=== PATIENT | female | born 1965 | race Caucasian/White ===

== ENCOUNTER 2016-09-17 17:35 | Inpatient (IN) | payer OTHER ==
[~2016-09-17] VITALS: Ht 167.6 cm; Wt 88.5 kg
[~2016-09-17 17:35] MED LIST: ACET325T PO; FLUO20CA4 PO; GABA300C5 PO; NEUR400C PO; PROZ40CA PO; RISP1 PO; RISP2TAB37 PO; TRAZ50TA12 PO
--- NOTE | 2016-09-17 18:38 | PD ---
HPI . Suicidal ideation Chief Complaint: Psych Time Seen by Provider: 18:37 Travel History International Travel<30 days: No Contact w/Intl Traveler<30days: No History of Present Illness HPI Patient presents in police custody under the Gonzales Act for suicidal ideation. The patient and her were allegedly having an argument. She stated that she was going to kill herself. She stated that she would do so by running into traffic. She reports a history of similar complaints and has been admitted to psychiatry before. PFSH Past Medical History Anxiety: Yes Depression: Yes Cancer: No Cardiovascular Problems: Yes (her heart flatters at times she states ) Diabetes: No Headaches: No Psychiatric: Yes Seizures: No Social History Alcohol Use: No Tobacco Use: No Substance Use: No Allergies-Medications (Allergen,Severity, Reaction): Coded Allergies: No Known Allergies (Unverified , 07/10/16) Reported Meds & Prescriptions Reported Meds & Active Scripts Active Fluoxetine (Fluoxetine HCl) 20 Mg Cap 20 Mg PO DAILY Neurontin (Gabapentin) 400 Mg Cap 400 Mg PO TID Trazodone (Trazodone HCl) 50 Mg Tab 100 Mg PO HS PRN Risperdal (Risperidone) 1 Mg Tab 2 Mg PO BID Acetaminophen 325 Mg Tab 650 Mg PO Q4H PRN 30 Days Reported Prozac (Fluoxetine HCl) 40 Mg Cap 40 Cap PO DAILY Gabapentin 300 Mg Cap 300 Mg PO TID Risperdal (Risperidone) 2 Mg Tab 2 Mg PO HS Review of Systems Except as stated in HPI: all other systems reviewed are Neg General / Constitutional: No: Fever, Chills HENT: No: Headaches Cardiovascular: No: Chest Pain or Discomfort Respiratory: No: Shortness of Breath Gastrointestinal: No: Vomiting, Diarrhea Genitourinary: No: Urgency, Frequency, Dysuria Psychiatric: Positive: Depression, Suicidal Ideations, Mood Disorder Physical Exam Narrative GENERAL: She is sitting in the chair in no distress. SKIN: Warm and dry. HEAD: Atraumatic. Normocephalic. EYES: Pupils equal and round. ENT: No nasal bleeding or discharge. Mucous membranes pink and moist. NECK: Trachea midline. CARDIOVASCULAR: Regular rate and rhythm. Heart sounds are normal. RESPIRATORY: No accessory muscle use. Lungs are clear with good air movement throughout. GASTROINTESTINAL: Abdomen soft, non-tender, nondistended. MUSCULOSKELETAL: No obvious deformities. No edema. NEUROLOGICAL: Awake and alert. No obvious cranial nerve deficits. Motor grossly within normal limits. Normal speech. PSYCHIATRIC: Flat affect. Good eye contact. She does not appear distracted by internal stimuli. Data Data Last Documented VS Vital Signs Date Time Temp Pulse Resp B/P Pulse Ox O2 Delivery O2 Flow Rate FiO2 09/17/16 20:39 97.8 88 18 131/73 97 Orders Complete Blood Count With Diff (09/17/16 18:37) Comprehensive Metabolic Panel (09/17/16 18:37) Drug Screen, Random Urine (09/17/16 18:37) Ed Urine Pregnancytest Poc (09/17/16 18:37) Alcohol (Ethanol) (09/17/16 18:37) Psych Screen (09/17/16 18:37) MDM Medical Decision Making Medical Screen Exam Complete: Yes Emergency Medical Condition: Yes Differential Diagnosis Differential diagnosis includes but is not limited to depression with suicidal gesture, suicide attempt, suicidal ideation, attention seeking behavior. Narrative Course Patient presents under the Gonzales Act for suicidal ideation. She does have a plan. Diagnosis Primary Impression: Suicidal ideation Condition: Stable Enriqueta Arevalo MD Sep 17, 2016 18:38
[2016-09-17 20:39] VITALS: BP 131/73; PULSE 88; RESP 18; TEMP 97.8; O2SAT 97
[2016-09-17 21:05] LABS: AUTOMATED NEUTROPHIL # 5.1 TH/MM3 (1.8-7.7); BASOPHIL # 0.1 TH/MM3 (0-0.2); BASOPHIL % 0.7 % (0.0-2.0); EOSINOPHIL # 0.2 TH/MM3 (0-0.4); EOSINOPHIL % 2.4 % (0.0-4.0); HEMATOCRIT 39.1 % (35.0-46.0); HEMO FLAGS DIFF FINAL; LYMPH % 22.6 % (9.0-44.0); LYMPHOCYTE # 1.8 TH/MM3 (1.0-4.8); MEAN CORPUSCULAR HEMOGLOBIN 30.4 PG (27.0-34.0); MEAN CORPUSCULAR HGB CONC 33.8 % (32.0-36.0); MONO % 10.3 % (0.0-8.0); PLATELET COUNT 251 TH/MM3 (150-450); RED BLOOD COUNT 4.35 MIL/MM3 (4.00-5.30); RED CELL DISTRIBUTION WIDTH 13.9 % (11.6-17.2)
[2016-09-17 21:22] LABS: ANION GAP 8 MEQ/L (5-15); AST (GOT) 9 U/L (15-37); BICARBONATE 27.4 MEQ/L (21.0-32.0); BLOOD UREA NITROGEN 15 MG/DL (7-18); CHLORIDE 106 MEQ/L (98-107); GLOMERULAR FILTRATION RATE 81 ML/MIN (>89); POTASSIUM 3.8 MEQ/L (3.5-5.1); SODIUM (NA) 141 MEQ/L (136-145)
[2016-09-17 21:25] LABS: ALKALINE PHOSPHATASE 112 U/L (45-117); ALT (GPT) 20 U/L (10-53); TOTAL BILIRUBIN ADULT 0.2 MG/DL (0.2-1.0)
[2016-09-17 21:47] LABS: AMPHETAMINE, URINE NEG (NEG); BARBITURATES, URINE NEG (NEG); COCAINE, URINE NEG (NEG)
[2016-09-18 03:02] VITALS: BP 132/63; PULSE 60; RESP 16; O2SAT 100
[2016-09-18 06:09] VITALS: BP 131/71; PULSE 61; RESP 18; O2SAT 97
[2016-09-18 11:33] VITALS: BP 136/64; PULSE 63; RESP 18; TEMP 98.7; O2SAT 98
[2016-09-18 14:54] VITALS: BP 128/63; PULSE 79; RESP 18; O2SAT 88
[2016-09-18] MEDS ORDERED: hydrOXYzine HCL 50 MG TAB PO PRN (17:00)
[2016-09-18] MEDS ORDERED: ACETAMINOPHEN 325 MG TAB PO PRN (17:00)
[2016-09-18] MEDS ORDERED: diphenhydrAMINE HCL 50 MG CAP PO PRN (17:00)
[2016-09-18] MEDS ORDERED: diphenhydrAMINE HCL 50 MG/ML VIAL IM PRN (17:00)
[2016-09-18] MEDS ORDERED: MAGNESIUM HYDROXIDE SUSP 30 ML CUP PO PRN (17:00)
[2016-09-18] MEDS ORDERED: ALUMINUM/MAGNESIUM/SIMETH 30 ML CUP PO PRN (17:00)
[2016-09-19 06:23] VITALS: BP 84/49; PULSE 59; RESP 16; TEMP 97.8; O2SAT 99
[2016-09-19 08:33] LABS: ANION GAP 5 MEQ/L (5-15); BICARBONATE 32.6 MEQ/L (21.0-32.0); BLOOD UREA NITROGEN 14 MG/DL (7-18); CHLORIDE 103 MEQ/L (98-107); GLOMERULAR FILTRATION RATE 83 ML/MIN (>89); POTASSIUM 3.7 MEQ/L (3.5-5.1); SODIUM (NA) 141 MEQ/L (136-145)
[2016-09-19 08:35] LABS: HDL CHOLESTEROL 50.7 MG/DL (40.0-60.0); LDL CHOLESTEROL 95 MG/DL (0-99)
[2016-09-19 09:50] VITALS: BP 126/67; PULSE 65
[2016-09-19] MEDS ORDERED: ACETAMINOPHEN 325 MG TAB PO PRN (10:30)
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
[2016-09-19] MEDS: risperiDONE 1 MG TAB PO SCH ×2 (11:34→20:51)
[2016-09-19] MEDS: GABAPENTIN 400 MG CAP PO SCH ×2 (12:00→17:24)
[2016-09-19 14:23] LABS: HEMOGLOBIN A1b 1.7 %; HEMOGLOBIN Ao 85.4 %; HEMOGLOBIN P3 3.9 %
[2016-09-19 19:53] VITALS: BP 122/96; PULSE 79; RESP 16; TEMP 97.8; O2SAT 98
[2016-09-19] MEDS: traZODone HCL 50 MG TAB PO PRN (23:53)
[2016-09-20 06:13] VITALS: BP 95/58; PULSE 64; RESP 16; TEMP 97.4
[2016-09-20] MEDS: GABAPENTIN 400 MG CAP PO SCH ×3 (09:07→17:38)
[2016-09-20] MEDS: risperiDONE 1 MG TAB PO SCH ×2 (09:07→21:30)
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
[2016-09-20 19:44] VITALS: BP 97/50; PULSE 94; RESP 18; TEMP 97.5; O2SAT 98
[2016-09-20] MEDS: traZODone HCL 50 MG TAB PO PRN (21:30)
[2016-09-21 06:39] VITALS: BP 112/69; PULSE 74; RESP 18; TEMP 97.2; O2SAT 98
[2016-09-21] MEDS: GABAPENTIN 400 MG CAP PO SCH ×3 (09:19→17:48)
[2016-09-21] MEDS: risperiDONE 1 MG TAB PO SCH ×2 (09:19→21:32)
--- NOTE | 2016-09-21 11:44 | HHI.PYPN ---
Subjective Remarks Patient was seen and discussed with the staff attorney. Patient tends to isolate herself and remains in her room. Not wanting to talk much she wanted to be left alone. She feels safe in the hospital and denied any suicidal ideation intentions or plan. Patient occasionally admitted to hearing voices but learning to ignore it. No behavior or management problem reported. No side effects were complained. Continue with the same treatment. technology services manager to assist in aftercare and discharge planning Review of Systems Except as stated in HPI: all other systems reviewed are Neg Psychiatric: COMPLAINS OF: Mood changes, Depression, Hallucinations (occasional ) Objective Alert: Yes [place]: Person, Place Mood: Anxious, Depressed Affect: Restricted Memory Intact: Recent (mildly impaired) Hallucinations: Auditory (patient admitted to occasionally hearing voices but learning to ignore it) Delusions: No Delusion Type: Other (no delusional material obvious at this time) Suicidal: Ideation (patient denies any suicidal ideation intentions or plan and feels safe in the hospital) Homicidal: Ideation (denies) Insight/Judgement Limited Vitals/IOs Vital Signs Date Time Temp Pulse Resp B/P Pulse Ox O2 Delivery O2 Flow Rate FiO2 09/21/16 06:39 97.2 74 18 112/69 98 09/18/16 14:54 Room Air Assessment & Plan Problem List: (1) Major depressive disorder, recurrent episode, severe, with psychosis ICD Code: F33.3 Assessment & Plan Estimated LOS: days Justification for Cont. Inpt. Risk For safety and monitoring of the medication. Request HC Surrog/Guard Advoc?: No Salo Ortiz MD Sep 21, 2016 11:44
[2016-09-21] MEDS: CITALOPRAM HYDROBROMIDE 20 MG TAB PO SCH (12:36)
[2016-09-21 19:50] VITALS: BP 98/65; PULSE 99; RESP 18; TEMP 97.6; O2SAT 98
[2016-09-22 06:22] VITALS: BP 107/70; PULSE 78; RESP 16; TEMP 97.5; O2SAT 97
[2016-09-22] MEDS: CITALOPRAM HYDROBROMIDE 20 MG TAB PO SCH (08:54)
[2016-09-22] MEDS: GABAPENTIN 400 MG CAP PO SCH ×2 (08:54→12:47)
[2016-09-22] MEDS: risperiDONE 1 MG TAB PO SCH (08:55)
--- NOTE | 2016-09-22 12:13 | HHI.PYPN ---
Subjective Remarks Patient was seen and discussed with the rn staffing. Patient was isolative and keeping to herself but no behavior or management problem reported. Patient denied any suicidal ideation intentions or plan. Denies any auditory or visual hallucinations. She claimed that she has been feeling better and wants to go home with her tomorrow and willing to take the medication and follow-up as an outpatient. Continue with the same treatment. [place] onc[facility] social worker to assist. Review of Systems Except as stated in HPI: all other systems reviewed are Neg Psychiatric: COMPLAINS OF: Mood changes, Depression Objective Alert: Yes [place]: Person, Place, Situation Mood: Depressed Affect: Restricted Memory Intact: Recent (mildly impaired) Hallucinations: Auditory (patient denied any active auditory or visual hallucination at this time) Delusions: No Delusion Type: Other (no delusional material obvious at this time) Suicidal: Ideation (patient denies any suicidal ideation intentions or plan and feels safe in the hospital) Homicidal: Ideation (denies) Insight/Judgement Fair Vitals/IOs Vital Signs Date Time Temp Pulse Resp B/P Pulse Ox O2 Delivery O2 Flow Rate FiO2 09/22/16 06:22 97.5 78 16 107/70 97 09/18/16 14:54 Room Air Assessment & Plan Problem List: (1) Major depressive disorder, recurrent episode, severe, with psychosis ICD Code: F33.3 Assessment & Plan Estimated LOS: days Justification for Cont. Inpt. Monitoring of the medication to help lift her depression Request HC Surrog/Guard Advoc?: No Salo Ortiz MD Sep 22, 2016 12:13
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
[2016-09-22] MEDS ORDERED: CELE20TA PO (14:15)
== END 2016-09-22 17:05 | disposition home or self-care (01) | DRG 885 ==
LOC: NEDAMB 17:35 → NEDA 09-18 16:45 → H260 09-18 18:00
PROVIDERS: ADMIT Psychiatry & Neurology Psychiatry; ATTEND Psychiatry & Neurology Psychiatry
DX: F33.3 Major depressive disorder, recurrent, severe with psychotic symptoms (principal); R45.851 Suicidal ideations; Z91.14 Patient's other noncompliance with medication regimen; Z81.8 Family history of other mental and behavioral disorders; Z91.410 Personal history of adult physical and sexual abuse; Z91.19 Patient's noncompliance with other medical treatment and regimen
CPT/HCPCS: 80048; 80053; 80061; 80307; 80320; 83036; 84703; 85025; 99284

== ENCOUNTER 2016-10-01 18:26 | Emergency (ER) | payer SELFPAY ==
[~2016-10-01 18:26] MED LIST changes: +CELE20TA PO
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
[2016-10-01 19:35] VITALS: BP 137/78; PULSE 75; RESP 18; TEMP 98.1; O2SAT 98
[2016-10-01 20:06] LABS: AUTOMATED NEUTROPHIL # 5.6 TH/MM3 (1.8-7.7); BASOPHIL % 0.3 % (0.0-2.0); EOSINOPHIL # 0.1 TH/MM3 (0-0.4); EOSINOPHIL % 1.8 % (0.0-4.0); HEMATOCRIT 38.4 % (35.0-46.0); HEMO FLAGS DIFF FINAL; LYMPH % 20.8 % (9.0-44.0); LYMPHOCYTE # 1.7 TH/MM3 (1.0-4.8); MEAN CELL VOLUME 90.2 FL (80.0-100.0); MEAN CORPUSCULAR HEMOGLOBIN 30.3 PG (27.0-34.0); MEAN CORPUSCULAR HGB CONC 33.6 % (32.0-36.0); MONO % 9.8 % (0.0-8.0); NEUT % 67.3 % (16.0-70.0); PLATELET COUNT 277 TH/MM3 (150-450); RED BLOOD COUNT 4.25 MIL/MM3 (4.00-5.30); RED CELL DISTRIBUTION WIDTH 13.6 % (11.6-17.2); WHITE BLOOD COUNT 8.3 TH/MM3 (4.0-11.0)
[2016-10-01 20:09] LABS: AMPHETAMINE, URINE NEG (NEG); BARBITURATES, URINE NEG (NEG); COCAINE, URINE NEG (NEG)
[2016-10-01 20:20] LABS: ANION GAP 7 MEQ/L (5-15)
[2016-10-01 20:23] LABS: ALKALINE PHOSPHATASE 91 U/L (45-117); ALT (GPT) 20 U/L (10-53); AST (GOT) 13 U/L (15-37); BICARBONATE 28.2 MEQ/L (21.0-32.0); BLOOD UREA NITROGEN 12 MG/DL (7-18); CHLORIDE 107 MEQ/L (98-107); GLOMERULAR FILTRATION RATE 80 ML/MIN (>89); POTASSIUM 3.5 MEQ/L (3.5-5.1); SODIUM (NA) 142 MEQ/L (136-145); TOTAL BILIRUBIN ADULT 0.3 MG/DL (0.2-1.0)
[2016-10-01 21:12] VITALS: BP 117/58; PULSE 78; RESP 18; O2SAT 97
[2016-10-01] MEDS ORDERED: ACETAMINOPHEN 325 MG TAB PO ONE (21:30)
[2016-10-02 02:12] VITALS: BP 119/67; PULSE 63; RESP 18; TEMP 97.6; O2SAT 97
== END 2016-10-02 05:00 ==
LOC: NEPJ 18:26
DX: F33.1 Major depressive disorder, recurrent, moderate (principal); M79.605 Pain in left leg; M79.604 Pain in right leg; G89.29 Other chronic pain; Z86.59 Personal history of other mental and behavioral disorders
CPT/HCPCS: 80053; 80307; 80320; 85025; 99285

== ENCOUNTER 2016-10-13 20:16 | Emergency (ER) | payer OTHER ==
[~2016-10-13] VITALS: Ht 152.4 cm; Wt 91.0 kg
[~2016-10-13 20:16] MED LIST changes: -FLUO20CA4 PO; -GABA300C5 PO
[2016-10-13 20:49] VITALS: BP 153/80; PULSE 82; RESP 19; TEMP 98.2; O2SAT 97
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
--- NOTE | 2016-10-13 21:59 | RADRPT ---
EXAM DATE/TIME: 10/13/2016 21:26 [facility] COMPARISON: No previous studies available for comparison. INDICATIONS : Right hip pain with no known injury. MEDICAL HISTORY : None. SURGICAL HISTORY : None. ENCOUNTER: Initial ACUITY: >1 year PAIN SCORE: 10/10 LOCATION: Right hip. FINDINGS: A two view examination of the right hip was performed. The primary and secondary trabecular pattern of the femoral neck is intact. The hip joint is of normal width without significant sclerosis or bon y hypertrophy. The acetabulum is grossly intact. CONCLUSION: Unremarkable examination of the right hip. Dimitri Kumar MD on October 13, 2016 at 21:57 Board Certified Radiologist. This report was verified electronically.
[2016-10-13 22:56] LABS: AUTOMATED NEUTROPHIL # 5.3 TH/MM3 (1.8-7.7); BASOPHIL % 0.5 % (0.0-2.0); EOSINOPHIL # 0.1 TH/MM3 (0-0.4); EOSINOPHIL % 1.6 % (0.0-4.0); HEMATOCRIT 35.8 % (35.0-46.0); HEMO FLAGS DIFF FINAL; LYMPH % 19.8 % (9.0-44.0); LYMPHOCYTE # 1.5 TH/MM3 (1.0-4.8); MEAN CELL VOLUME 90.8 FL (80.0-100.0); MEAN CORPUSCULAR HEMOGLOBIN 31.5 PG (27.0-34.0); MEAN CORPUSCULAR HGB CONC 34.7 % (32.0-36.0); MONO % 9.1 % (0.0-8.0); PLATELET COUNT 210 TH/MM3 (150-450); RED BLOOD COUNT 3.94 MIL/MM3 (4.00-5.30); RED CELL DISTRIBUTION WIDTH 13.9 % (11.6-17.2); WHITE BLOOD COUNT 7.6 TH/MM3 (4.0-11.0)
[2016-10-13 23:11] LABS: ALKALINE PHOSPHATASE 91 U/L (45-117); ALT (GPT) 19 U/L (10-53); ANION GAP 8 MEQ/L (5-15); AST (GOT) 13 U/L (15-37); BICARBONATE 27.4 MEQ/L (21.0-32.0); BLOOD UREA NITROGEN 14 MG/DL (7-18); CHLORIDE 108 MEQ/L (98-107); GLOMERULAR FILTRATION RATE 94 ML/MIN (>89); POTASSIUM 3.6 MEQ/L (3.5-5.1); SODIUM (NA) 143 MEQ/L (136-145); TOTAL BILIRUBIN ADULT 0.3 MG/DL (0.2-1.0)
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
[2016-10-14 06:00] VITALS: BP 101/56; PULSE 78; RESP 18; O2SAT 95
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
[2016-10-14 13:18] VITALS: BP 138/78; PULSE 80; RESP 18; O2SAT 98
== END 2016-10-14 15:00 ==
LOC: NEPA 20:16 → NEPJ 10-14 15:00
DX: F33.1 Major depressive disorder, recurrent, moderate (principal); M25.551 Pain in right hip; S01.511A Laceration without foreign body of lip, initial encounter; Y04.0XXA Assault by unarmed brawl or fight, initial encounter
CPT/HCPCS: 73502; 80053; 80320; 85025; 99284

== ENCOUNTER 2016-10-20 23:56 | Emergency (ER) | payer SELFPAY ==
[~2016-10-20 23:56] MED LIST changes: -ACET325T PO
[2016-10-20 23:59] VITALS: BP 135/104; PULSE 102; RESP 20; TEMP 97.6; O2SAT 97
[2016-10-21 00:31] LABS: AUTOMATED NEUTROPHIL # 4.3 TH/MM3 (1.8-7.7); BASOPHIL # 0.1 TH/MM3 (0-0.2); BASOPHIL % 1.1 % (0.0-2.0); EOSINOPHIL # 0.2 TH/MM3 (0-0.4); EOSINOPHIL % 3.1 % (0.0-4.0); HEMO FLAGS DIFF FINAL; LYMPH % 28.4 % (9.0-44.0); LYMPHOCYTE # 2.2 TH/MM3 (1.0-4.8); MEAN CELL VOLUME 89.2 FL (80.0-100.0); MEAN CORPUSCULAR HEMOGLOBIN 30.9 PG (27.0-34.0); MEAN CORPUSCULAR HGB CONC 34.7 % (32.0-36.0); MONO % 11.2 % (0.0-8.0); NEUT % 56.2 % (16.0-70.0); PLATELET COUNT 236 TH/MM3 (150-450); RED BLOOD COUNT 4.37 MIL/MM3 (4.00-5.30); RED CELL DISTRIBUTION WIDTH 13.7 % (11.6-17.2); WHITE BLOOD COUNT 7.6 TH/MM3 (4.0-11.0)
--- NOTE | 2016-10-21 00:32 | RADRPT ---
EXAM DATE/TIME: 10/20/2016 22:23 [facility] COMPARISON: CHEST SINGLE AP, October 08, 2015, 19:56. INDICATIONS : Chest pain. MEDICAL HISTORY : None. SURGICAL HISTORY : None. ENCOUNTER: Initial ACUITY: 1 day PAIN SCORE: 10/10 LOCATION: Bilateral chest FINDINGS: A single view of the chest demonstrates the lungs to be symmetrically aerated without evidence of mas s, infiltrate or effusion. The cardiomediastinal contours are unremarkable. Osseous structures are intact. CONCLUSION: No acute disease. Arjun Wisdom MD on October 21, 2016 at 0:31 Board Certified Radiologist. This report was verified electronically.
[2016-10-21 00:53] LABS: ANION GAP 8 MEQ/L (5-15); BICARBONATE 28.6 MEQ/L (21.0-32.0); BLOOD UREA NITROGEN 26 MG/DL (7-18); CHLORIDE 104 MEQ/L (98-107); CREATINE KINASE 52 U/L (26-192); GLOMERULAR FILTRATION RATE 74 ML/MIN (>89); POTASSIUM 4.1 MEQ/L (3.5-5.1); SODIUM (NA) 141 MEQ/L (136-145)
[2016-10-21] MEDS ORDERED: SODIUM CHLOR 0.9% 1000 ML INJ 1,000 ML IV ONE (01:00)
[2016-10-21 01:06] VITALS: BP 144/85; PULSE 80; RESP 16; TEMP 98.5; O2SAT 98
[2016-10-21] MEDS ORDERED: IBUP400T20 PO (02:28)
--- NOTE | 2016-10-21 02:30 | PD ---
HPI Chief Complaint: Chest Pain Time Seen by Provider: 00:57 Travel History International Travel<30 days: No Contact w/Intl Traveler<30days: No Traveled to known affect area: No History of Present Illness HPI 51-year-old female complains of left-sided chest pain duration 30 minutes or so. Onset occurred while walking. There is no pleuritic component. She has been sneezing quite a bit lately. She denies a family history of early onset coronary artery disease. She denies history of diabetes hyperlipidemia and hypertension. She does not smoke. She does not drink. Severity moderate. PFSH Past Medical History Bipolar Disorder: Yes Anxiety: Yes Depression: Yes Cancer: No Cardiovascular Problems: Yes (her heart flutters at times she states ) Diabetes: No Diminished Hearing: No Headaches: No Psychiatric: Yes (schizophrenia) Immunizations Current: Yes Schizophrenia: Yes Seizures: No Tetanus Vaccination: < 5 Years Influenza Vaccination: No ?: Unknown LMP: UNK Past Surgical History Section: Yes ( x 2) Other Surgery: Yes ( x2.) Social History Alcohol Use: No Tobacco Use: No Substance Use: No Allergies-Medications (Allergen,Severity, Reaction): Coded Allergies: No Known Allergies (Unverified , 10/21/16) Reported Meds & Prescriptions Reported Meds & Active Scripts Active Celexa (Citalopram Hydrobromide) 20 Mg Tab 20 Mg PO DAILY 10 Days Reported Prozac (Fluoxetine HCl) 40 Mg Cap 40 Cap PO DAILY Review of Systems Except as stated in HPI: all other systems reviewed are Neg Physical Exam Narrative GENERAL: 51-year-old female resting comfortably on bed multiple bags of personal belongings SKIN: Warm and dry. HEAD: Atraumatic. Normocephalic. EYES: Pupils equal and round. No scleral icterus. No injection or drainage. ENT: No nasal bleeding or discharge. Mucous membranes pink and moist. NECK: Trachea midline. No JVD. CARDIOVASCULAR: Regular rate and rhythm. No murmur appreciated. RESPIRATORY: No accessory muscle use. Clear to auscultation. Breath sounds equal bilaterally. GASTROINTESTINAL: Abdomen soft, non-tender, nondistended. Hepatic and splenic margins not palpable. MUSCULOSKELETAL: No obvious deformities. No clubbing. No cyanosis. No edema. NEUROLOGICAL: Awake and alert. No obvious cranial nerve deficits. Motor grossly within normal limits. Normal speech. PSYCHIATRIC: Appropriate mood and affect; insight and judgment normal. Data Data Last Documented VS Vital Signs Date Time Temp Pulse Resp B/P Pulse Ox O2 Delivery O2 Flow Rate FiO2 10/21/16 01:07 78 16 98 Room Air 10/21/16 01:06 98.5 144/85 Orders Electrocardiogram (10/20/16 23:59) Complete Blood Count With Diff (10/20/16 23:59) Basic Metabolic Panel (Bmp) (10/20/16 23:59) Ckmb (Isoenzyme) Profile (10/20/16 23:59) Troponin I (10/20/16 23:59) Chest, Single Ap (10/20/16 23:59) Iv Access Insert/Monitor (10/20/16 23:59) Sodium Chlor 0.9% 1000 Ml Inj (Ns 1000 M (10/21/16 01:00) Labs Laboratory Tests Test 10/21/16 00:15 White Blood Count 7.6 TH/MM3 Red Blood Count 4.37 MIL/MM3 Hemoglobin 13.5 GM/DL Hematocrit 39.0 % Mean Corpuscular Volume 89.2 FL Mean Corpuscular Hemoglobin 30.9 PG Mean Corpuscular Hemoglobin 34.7 % Concent Red Cell Distribution Width 13.7 % Platelet Count 236 TH/MM3 Mean Platelet Volume 7.4 FL Neutrophils (%) (Auto) 56.2 % Lymphocytes (%) (Auto) 28.4 % Monocytes (%) (Auto) 11.2 % Eosinophils (%) (Auto) 3.1 % Basophils (%) (Auto) 1.1 % Neutrophils # (Auto) 4.3 TH/MM3 Lymphocytes # (Auto) 2.2 TH/MM3 Monocytes # (Auto) 0.9 TH/MM3 Eosinophils # (Auto) 0.2 TH/MM3 Basophils # (Auto) 0.1 TH/MM3 CBC Comment DIFF FINAL Differential Comment Sodium Level 141 MEQ/L Potassium Level 4.1 MEQ/L Chloride Level 104 MEQ/L Carbon Dioxide Level 28.6 MEQ/L Anion Gap 8 MEQ/L Blood Urea Nitrogen 26 MG/DL Creatinine 0.81 MG/DL Estimat Glomerular Filtration 74 ML/MIN Rate Random Glucose 94 MG/DL Calcium Level 8.7 MG/DL Total Creatine Kinase 52 U/L Troponin I LESS THAN 0.02 NG/ML MDM Medical Decision Making Medical Screen Exam Complete: Yes Emergency Medical Condition: Yes Medical Record Reviewed: Yes Differential Diagnosis NSTEMI, unstable angina, coronary vasospasm, PE, PTX, aortic dissection, pericarditis, myocarditis, endocarditis, PNA, esophageal disease, aneurysm, musculoskeletal etiologies, anxiety, cocaine/sympathomimetic abuse Narrative Course EKG reveals sinus rhythm with a rate of 91 normal axis intervals no evidence of ischemic injury pattern CBC & BMP Diagram 10/21/16 00:15 Troponin less than 0.02 Diagnosis Primary Impression: Chest pain Qualified Code: R07.9 - Chest pain, unspecified type Referrals: Primary Care Physician 2 days Additional Instructions: You have a choice when it comes to health care, and we are glad that you chose [email or web address]. Hopefully, we have met your expectations on today's visit. You are welcome to return to [email or web address] at any time, as we are committed to meeting the health care needs of our community. Med/Other Pt SpecificInfo: No Change to Meds Scripts Ibuprofen 400 Mg [id number] Mg PO Q8H PRN (PAIN SCALE 6 TO 10) #10 TAB Ref 0 Prov:Gm Moreno MD 10/21/16 Disposition: 01 DISCHARGE HOME Condition: Stable Gm Moreno MD Oct 21, 2016 02:30
[2016-10-21 02:45] VITALS: BP 138/62; TEMP 98.5
[2016-10-21] MEDS ORDERED: IBUPROFEN 400 MG TAB PO ONE (02:45)
--- NOTE | 2016-10-21 19:07 | EKG ---
Date Performed: 10/21/2016 Time Performed: 00:07:58 PTAGE: 51 years EKG: Sinus rhythm NORMAL ECG PREVIOUS TRACING : 10/08/2015 18.42 Compared to prior tracing no significant change DOCTOR: Ravinder Moreno Interpretating Date/Time 10/21/2016 19:06:14
== END 2016-10-21 02:56 | disposition home or self-care (01) ==
LOC: NEPC 23:56
DX: R07.9 Chest pain, unspecified (principal)
CPT/HCPCS: 71010; 80048; 82550; 84484; 85025; 93005; 96360; 99285; J7030

== ENCOUNTER 2016-11-10 17:18 | Emergency (ER) | payer OTHER ==
[~2016-11-10] VITALS: Ht 152.4 cm; Wt 92.0 kg
[~2016-11-10 17:18] MED LIST changes: +IBUP400T20 PO; -NEUR400C PO; -RISP1 PO; -RISP2TAB37 PO; -TRAZ50TA12 PO
--- NOTE | 2016-11-10 18:12 | PD ---
HPI Chief Complaint: Gonzales Act/Suicidal Time Seen by Provider: 17:48 Travel History International Travel<30 days: No Contact w/Intl Traveler<30days: No Traveled to known affect area: No History of Present Illness HPI 51-year-old female presents to emergency department on Gonzales act by law enforcement. Patient apparently walked into a store locally here and told an employee that she felt like she was going to kill herself by walking on the traffic. Patient states she is supposed be taking medicines for depression but has not been taking them. Patient denies any alcohol or drug use denies any smoking history. Patient only physical complaint is chronic right hip pain which she states is no different today than it has been for the past few years. Denies any trauma. Denies any cough congestion nausea vomiting or fever. PFSH Past Medical History Bipolar Disorder: Yes Anxiety: Yes Depression: Yes Cancer: No Cardiovascular Problems: Yes (her heart flutters at times she states ) Diabetes: No Diminished Hearing: No Headaches: No Psychiatric: Yes (schizophrenia) Immunizations Current: Yes Schizophrenia: Yes Seizures: No Past Surgical History Section: Yes ( x 2) Other Surgery: Yes ( x2.) Social History Alcohol Use: No Tobacco Use: No Substance Use: No Allergies-Medications (Allergen,Severity, Reaction): Coded Allergies: No Known Allergies (Unverified , 10/21/16) Reported Meds & Prescriptions Reported Meds & Active Scripts Active Ibuprofen 400 Mg Tab 400 Mg PO Q8H PRN Celexa (Citalopram Hydrobromide) 20 Mg Tab 20 Mg PO DAILY 10 Days Reported Prozac (Fluoxetine HCl) 40 Mg Cap 40 Cap PO DAILY Review of Systems Except as stated in HPI: all other systems reviewed are Neg Physical Exam Narrative GENERAL: Well-developed well-nourished in no apparent distress. Disheveled. SKIN: Warm and dry. HEAD: Atraumatic. Normocephalic. EYES: Pupils equal and round. No scleral icterus. No injection or drainage. ENT: No nasal bleeding or discharge. Mucous membranes pink and moist. NECK: Trachea midline. No JVD. CARDIOVASCULAR: Regular rate and rhythm. No murmur appreciated. RESPIRATORY: No accessory muscle use. Clear to auscultation. Breath sounds equal bilaterally. GASTROINTESTINAL: Abdomen soft, non-tender, nondistended. Hepatic and splenic margins not palpable. MUSCULOSKELETAL: No obvious deformities. No clubbing. No cyanosis. No edema. NEUROLOGICAL: Awake and alert. No obvious cranial nerve deficits. Motor grossly within normal limits. Normal speech. PSYCHIATRIC: Endorses suicidal ideation with planning, states she walked out of the traffic today trying to get hit and was unable to do so. Denies homicidal ideation or audiovisual hallucinations. Data Data Last Documented VS Vital Signs Date Time Temp Pulse Resp B/P Pulse Ox O2 Delivery O2 Flow Rate FiO2 11/11/16 02:00 69 20 108/55 97 Room Air 11/10/16 18:36 98.7 Orders Complete Blood Count With Diff (11/10/16 17:49) Comprehensive Metabolic Panel (11/10/16 17:49) Urinalysis - C+S If Indicated (11/10/16 17:49) Psych Screen (11/10/16 17:49) Drug Screen, Random Urine (11/10/16 17:49) Alcohol (Ethanol) (11/10/16 17:49) Urine Culture (11/10/16 18:20) Cephalexin (Keflex) (11/10/16 19:45) Diet Regular Basic (11/10/16 Dinner) Diet Regular Basic (11/11/16 Breakfast) Labs Laboratory Tests Test 11/10/16 11/10/16 18:20 18:25 Urine Color YELLOW Urine Turbidity CLOUDY Urine pH 5.5 Urine Specific [place] 1.033 Urine Protein 30 mg/dL Urine Glucose (UA) NEG mg/dL Urine Ketones NEG mg/dL Urine Occult Blood NEG Urine Nitrite NEG Urine Bilirubin NEG Urine Urobilinogen LESS THAN 2.0 MG/DL Urine Leukocyte Esterase LARGE Urine RBC 1 /hpf Urine WBC 39 /hpf Urine Squamous Epithelial 38 /hpf Cells Urine Calcium Oxalate Crystals MOD /hpf Urine Bacteria MOD /hpf Urine Mucus MANY /lpf Microscopic Urinalysis Comment CULTURE INDICATED Urine Opiates Screen NEG Urine Barbiturates Screen NEG Urine Amphetamines Screen NEG Urine Benzodiazepines Screen NEG Urine Cocaine Screen NEG Urine Cannabinoids Screen NEG White Blood Count 6.8 TH/MM3 Red Blood Count 4.38 MIL/MM3 Hemoglobin 13.2 GM/DL Hematocrit 39.6 % Mean Corpuscular Volume 90.4 FL Mean Corpuscular Hemoglobin 30.2 PG Mean Corpuscular Hemoglobin 33.4 % Concent Red Cell Distribution Width 14.2 % Platelet Count 224 TH/MM3 Mean Platelet Volume 7.5 FL Neutrophils (%) (Auto) 58.9 % Lymphocytes (%) (Auto) 28.2 % Monocytes (%) (Auto) 9.4 % Eosinophils (%) (Auto) 2.7 % Basophils (%) (Auto) 0.8 % Neutrophils # (Auto) 4.0 TH/MM3 Lymphocytes # (Auto) 1.9 TH/MM3 Monocytes # (Auto) 0.6 TH/MM3 Eosinophils # (Auto) 0.2 TH/MM3 Basophils # (Auto) 0.1 TH/MM3 CBC Comment DIFF FINAL Differential Comment Sodium Level 142 MEQ/L Potassium Level 3.6 MEQ/L Chloride Level 106 MEQ/L Carbon Dioxide Level 29.3 MEQ/L Anion Gap 7 MEQ/L Blood Urea Nitrogen 17 MG/DL Creatinine 0.99 MG/DL Estimat Glomerular Filtration 59 ML/MIN Rate Random Glucose 105 MG/DL Calcium Level 8.8 MG/DL Total Bilirubin 0.3 MG/DL Aspartate Amino Transf 15 U/L (AST/SGOT) Alanine Aminotransferase 24 U/L (ALT/SGPT) Alkaline Phosphatase 102 U/L Total Protein 7.6 GM/DL Albumin 3.6 GM/DL Ethyl Alcohol Level LESS THAN 3 MG/DL MDM Medical Decision Making Medical Screen Exam Complete: Yes Emergency Medical Condition: Yes Differential Diagnosis Suicidal ideation, chronic hip pain, depression, major depressive disorder. Narrative Course Patient seen and examined the emergency department, she does have evidence of urinary tract infection otherwise her labs are reassuring. Calcium Megan crystals likely incidental finding. She has no anion gap and no acidosis. She is medically cleared for psychiatric evaluation and disposition. Recommend Keflex 500 mg by mouth every 6 hours for 3 days. This is ordered. Diagnosis Primary Impression: UTI (urinary tract infection) Qualified Code: N30.00 - Acute cystitis without hematuria Additional Impressions: Suicidal behavior Depressive disorder Condition: Stable Panfilo Landers MD Nov 10, 2016 18:12
[2016-11-10 18:36] VITALS: BP 138/71; PULSE 92; RESP 18; TEMP 98.7; O2SAT 97
[2016-11-10 18:40] LABS: BASOPHIL # 0.1 TH/MM3 (0-0.2); BASOPHIL % 0.8 % (0.0-2.0); EOSINOPHIL # 0.2 TH/MM3 (0-0.4); EOSINOPHIL % 2.7 % (0.0-4.0); HEMATOCRIT 39.6 % (35.0-46.0); HEMO FLAGS DIFF FINAL; LYMPH % 28.2 % (9.0-44.0); LYMPHOCYTE # 1.9 TH/MM3 (1.0-4.8); MEAN CELL VOLUME 90.4 FL (80.0-100.0); MEAN CORPUSCULAR HEMOGLOBIN 30.2 PG (27.0-34.0); MEAN CORPUSCULAR HGB CONC 33.4 % (32.0-36.0); MONO % 9.4 % (0.0-8.0); NEUT % 58.9 % (16.0-70.0); PLATELET COUNT 224 TH/MM3 (150-450); RED BLOOD COUNT 4.38 MIL/MM3 (4.00-5.30); RED CELL DISTRIBUTION WIDTH 14.2 % (11.6-17.2); WHITE BLOOD COUNT 6.8 TH/MM3 (4.0-11.0)
[2016-11-10 19:00] LABS: BACTERIA, URINE MOD /hpf; BLOOD, URINE NEG (NEG); CALCIUM OXALATE CRYSTALS,URINE MOD /hpf; COMMENT (UR) CULTURE INDICATED; CULTURE IF INDICATED CULTURE INDICATED; GLUCOSE,URINE NEG (NEG); KETONE, URINE NEG (NEG); MUCUS URINE MANY /lpf (OCC); NITRITE,URINE NEG (NEG); PH, URINE 5.5 (5.0-8.5); SQUAMOUS EPITHELIAL CELL URINE 38 /hpf (0-5); URINE COLOR YELLOW (YELLW/STRAW)
[2016-11-10 19:03] LABS: ANION GAP 7 MEQ/L (5-15); AST (GOT) 15 U/L (15-37); BICARBONATE 29.3 MEQ/L (21.0-32.0); BLOOD UREA NITROGEN 17 MG/DL (7-18); CHLORIDE 106 MEQ/L (98-107); GLOMERULAR FILTRATION RATE 59 ML/MIN (>89); POTASSIUM 3.6 MEQ/L (3.5-5.1); SODIUM (NA) 142 MEQ/L (136-145)
[2016-11-10 19:07] LABS: ALKALINE PHOSPHATASE 102 U/L (45-117); ALT (GPT) 24 U/L (10-53); TOTAL BILIRUBIN ADULT 0.3 MG/DL (0.2-1.0)
[2016-11-10 19:16] LABS: AMPHETAMINE, URINE NEG (NEG); BARBITURATES, URINE NEG (NEG); COCAINE, URINE NEG (NEG)
[2016-11-10 19:55] VITALS: BP 123/58; PULSE 82; RESP 20
[2016-11-10] MEDS: CEPHALEXIN MONOHYDRATE 500 MG CAP PO SCH (20:06)
[2016-11-10 21:49] VITALS: BP 133/79; PULSE 95; RESP 19; O2SAT 98
[2016-11-11] MEDS: CEPHALEXIN MONOHYDRATE 500 MG CAP PO SCH ×4 (00:30→17:53)
[2016-11-11 02:00] VITALS: BP 108/55; PULSE 69; RESP 20; O2SAT 97
[2016-11-11 06:21] VITALS: BP 121/71; PULSE 61; RESP 17; O2SAT 98
[2016-11-11 11:05] VITALS: BP 129/78; PULSE 88; RESP 18
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
[2016-11-11 14:00] VITALS: BP 112/56; PULSE 70; RESP 18
[2016-11-11 17:25] VITALS: BP 111/85; PULSE 75; RESP 18
[2016-11-11] MEDS ORDERED: CEPH-460 PO (17:40)
== END 2016-11-11 19:07 | disposition short-term general hospital (02) ==
LOC: NEPA 17:18 → NEPJ 11-11 19:07
DX: F32.9 Major depressive disorder, single episode, unspecified (principal); R45.851 Suicidal ideations; N39.0 Urinary tract infection, site not specified; M25.551 Pain in right hip; G89.29 Other chronic pain
CPT/HCPCS: 80053; 80307; 80320; 81001; 85025; 87086; 99285

== ENCOUNTER 2016-11-23 23:47 | Observation (INO) | payer SELFPAY ==
[~2016-11-23 23:47] MED LIST changes: +CEPH-460 PO
[2016-11-23 23:50] VITALS: BP 123/84; PULSE 98; RESP 16; TEMP 97.4; O2SAT 98
[2016-11-24 00:15] VITALS: BP 116/85; PULSE 82; RESP 16; O2SAT 100
--- NOTE | 2016-11-24 00:29 | PD ---
HPI Chief Complaint: Chest Pain Time Seen by Provider: 23:57 Travel History International Travel<30 days: No Contact w/Intl Traveler<30days: No History of Present Illness HPI The patient is 51 years old and arrives with chest pain which started 30 minutes prior to arrival while she was walking. Location is left chest. There is no radiation. She reports "I've been stressed out all day." She also states , "I've been walking all day." She denies a personal history diabetes hypertension or hyperlipidemia. She does not smoke. She reports her father had a myocardial infarction. She reports nausea and vomiting upon arrival to the ER, having vomited in the ER bathroom. She does not mention bloody emesis. There is no mention of shortness of breath or cough or fever. PFSH Past Medical History Bipolar Disorder: Yes Anxiety: Yes Depression: Yes Cancer: No Cardiovascular Problems: Yes (her heart flutters at times she states ) Diabetes: No Diminished Hearing: No Headaches: No Psychiatric: Yes (schizophrenia) Immunizations Current: Yes Schizophrenia: Yes Seizures: No Tetanus Vaccination: Unknown Influenza Vaccination: No ?: Not Past Surgical History Section: Yes ( x 2) Other Surgery: Yes ( x2.) Social History Alcohol Use: No Tobacco Use: No Substance Use: No Allergies-Medications (Allergen,Severity, Reaction): Coded Allergies: No Known Allergies (Unverified , 10/21/16) Reported Meds & Prescriptions Reported Meds & Active Scripts Active Azithromycin 250 Mg Tab 250 Mg PO DIRECTED Take 2 tabs (500 mg) on day 1 then 1 tab daily x 4 days. Keflex (Cephalexin) 500 Mg Cap 500 Mg PO Q8H 7 Days Ibuprofen 400 Mg Tab 400 Mg PO Q8H PRN Celexa (Citalopram Hydrobromide) 20 Mg Tab 20 Mg PO DAILY 10 Days Reported Prozac (Fluoxetine HCl) 40 Mg Cap 40 Cap PO DAILY Review of Systems Except as stated in HPI: all other systems reviewed are Neg General / Constitutional: No: Fever, Chills Cardiovascular: Positive: Chest Pain or Discomfort Respiratory: No: Shortness of Breath Physical Exam Narrative GENERAL: 51-year-old female well-nourished well-developed no acute distress SKIN: Warm and dry. Erythematous rash about the extremities not cellulitis in appearance. HEAD: Atraumatic. Normocephalic. EYES: Pupils equal and round. No scleral icterus. No injection or drainage. ENT: No nasal bleeding or discharge. Mucous membranes pink and moist. NECK: Trachea midline. No JVD. CARDIOVASCULAR: Regular rate and rhythm. No murmur appreciated. RESPIRATORY: No accessory muscle use. Clear to auscultation. Breath sounds equal bilaterally. GASTROINTESTINAL: Abdomen soft, non-tender, nondistended. Hepatic and splenic margins not palpable. MUSCULOSKELETAL: No obvious deformities. No clubbing. No cyanosis. No edema. NEUROLOGICAL: Awake and alert. No obvious cranial nerve deficits. Motor grossly within normal limits. Normal speech. PSYCHIATRIC: Appropriate mood and affect; insight and judgment normal. Data Data Last Documented VS Vital Signs Date Time Temp Pulse Resp B/P Pulse Ox O2 Delivery O2 Flow Rate FiO2 11/24/16 00:15 100 21 11/24/16 00:15 82 16 116/85 Room Air 11/23/16 23:50 97.4 Vital signs reviewed Orders Electrocardiogram (11/24/16:24) Basic Metabolic Panel (Bmp) (11/24/16:24) Ckmb (Isoenzyme) Profile (11/24/16 00:24) Complete Blood Count With Diff (11/24/16:24) Magnesium (Mg) (11/24/16:24) Troponin I (11/24/16:24) Chest, Single Ap (11/24/16 00:24) Ecg Monitoring (11/24/16 00:24) Bilateral Bp Monitoring (11/24/16:24) Iv Access Insert/Monitor (11/24/16:24) Oximetry (11/24/16:24) Oxygen Administration (11/24/16 00:24) Aspirin (Aspirin) (11/24/16 00:30) Sodium Chloride 0.9% Flush (Ns Flush) (11/24/16 00:30) Nitroglycerin Sl (Nitrostat Sl) (11/24/16 00:30) Urinalysis - C+S If Indicated (11/24/16 00:30) Admit Order (Ed Use Only) (11/24/16 03:00) Place In Observation (11/24/16 03:00) Activity Bed Rest With Brp (11/24/16 03:00) Vital Signs (Adult) Q4H (3/14/17 03:00) Cardiac Rhythm .As Directed (11/24/16 03:00) ^ Notify Dr: Other .PRN (11/24/16 03:00) ^ Notify DrHetal Parameters (11/24/16 03:00) Resp Oxygen Nasal Cannula (11/24/16 ) Diet Npo (11/24/16 Breakfast) Ckmb (Isoenzyme) Profile (11/24/16 03:00) Ckmb (Isoenzyme) Profile (11/24/16 06:00) Troponin I (11/24/16 03:00) Troponin I (11/24/16 06:00) Electrocardiogram (11/24/16 03:00) Electrocardiogram (11/24/16 06:00) ^ Obtain (11/24/16 03:00) Sodium Chloride 0.9% Flush (Ns Flush) (11/24/16 03:00) Sodium Chloride 0.9% Flush (Ns Flush) (11/24/16 09:00) Acetaminophen (Tylenol) (11/24/16 03:00) Acetamin-Hydrocod 325-7.5 Mg ([place] 7.5 (11/24/16 03:00) Morphine Inj (Morphine Inj) (11/24/16 03:00) Aspirin (Aspirin) (11/24/16 09:00) Temazepam (Restoril) (11/24/16 03:00) Alprazolam (Xanax) (11/24/16 03:00) Finish Painter / Telemetry DINORA.Q8H (11/24/16 03:00) Labs Laboratory Tests Test 11/24/16 00:40 White Blood Count 7.6 TH/MM3 Red Blood Count 4.25 MIL/MM3 Hemoglobin 13.0 GM/DL Hematocrit 37.9 % Mean Corpuscular Volume 89.2 FL Mean Corpuscular Hemoglobin 30.7 PG Mean Corpuscular Hemoglobin 34.4 % Concent Red Cell Distribution Width 14.5 % Platelet Count 236 TH/MM3 Mean Platelet Volume 8.2 FL Neutrophils (%) (Auto) 64.0 % Lymphocytes (%) (Auto) 24.6 % Monocytes (%) (Auto) 9.4 % Eosinophils (%) (Auto) 1.4 % Basophils (%) (Auto) 0.6 % Neutrophils # (Auto) 4.9 TH/MM3 Lymphocytes # (Auto) 1.9 TH/MM3 Monocytes # (Auto) 0.7 TH/MM3 Eosinophils # (Auto) 0.1 TH/MM3 Basophils # (Auto) 0.0 TH/MM3 CBC Comment DIFF FINAL Differential Comment Sodium Level 145 MEQ/L Potassium Level 3.7 MEQ/L Chloride Level 106 MEQ/L Carbon Dioxide Level 28.0 MEQ/L Anion Gap 11 MEQ/L Blood Urea Nitrogen 12 MG/DL Creatinine 0.72 MG/DL Estimat Glomerular Filtration 85 ML/MIN Rate Random Glucose 94 MG/DL Calcium Level 8.8 MG/DL Magnesium Level 2.0 MG/DL Total Creatine Kinase 90 U/L Troponin I LESS THAN 0.02 NG/ML MDM Medical Decision Making Medical Screen Exam Complete: Yes Emergency Medical Condition: Yes Medical Record Reviewed: Yes Differential Diagnosis NSTEMI, unstable angina, coronary vasospasm, PE, PTX, aortic dissection, pericarditis, myocarditis, endocarditis, PNA, esophageal disease, aneurysm, musculoskeletal etiologies, anxiety, cocaine/sympathomimetic abuse Narrative Course CBC & BMP Diagram 11/24/16 00:40 Troponin undetectable EKG: Sinus, rate 69, normal axis/intervals, no ischemia CXR: ? L base PNA Patient would benefit from chest pain center protocol evaluation. We'll prescribe azithromycin. Diagnosis Primary Impression: Chest pain Qualified Code: R07.9 - Chest pain, unspecified type Additional Impression: PNA (pneumonia) Qualified Code: J18.1 - Pneumonia of left lower lobe due to infectious organism Admitting Information Admitting Physician Requests: Observation Referrals: Primary Care Physician 2 days Additional Instructions: You have a choice when it comes to health care, and we are glad that you chose [facility]. Hopefully, we have met your expectations on today's visit. You are welcome to return to [facility] at any time, as we are committed to meeting the health care needs of our community. Med/Other Pt SpecificInfo: Prescription(s) given Scripts Azithromycin 250 Mg [id number] Mg PO DIRECTED #6 TAB Ref 0 Take 2 tabs (500 mg) on day 1 then 1 tab daily x 4 days. Prov:Gm Moreno MD 11/24/16 Gm Moreno MD Nov 24, 2016 00:29
[2016-11-24] MEDS ORDERED: SODIUM CHLORIDE 0.9% FLUSH 5 ML FLUSH IVF PRN ×2 (00:30→03:00)
[2016-11-24] MEDS: NITROGLYCERIN 0.4 MG SL 25 TABS/BTL SL SCH ×3 (00:30→00:40)
[2016-11-24] MEDS ORDERED: ASPIRIN 325 MG TAB PO ONE (00:30)
[2016-11-24 00:53] LABS: AUTOMATED NEUTROPHIL # 4.9 TH/MM3 (1.8-7.7); BASOPHIL % 0.6 % (0.0-2.0); EOSINOPHIL # 0.1 TH/MM3 (0-0.4); EOSINOPHIL % 1.4 % (0.0-4.0); HEMATOCRIT 37.9 % (35.0-46.0); HEMO FLAGS DIFF FINAL; LYMPH % 24.6 % (9.0-44.0); LYMPHOCYTE # 1.9 TH/MM3 (1.0-4.8); MEAN CELL VOLUME 89.2 FL (80.0-100.0); MEAN CORPUSCULAR HEMOGLOBIN 30.7 PG (27.0-34.0); MEAN CORPUSCULAR HGB CONC 34.4 % (32.0-36.0); MONO % 9.4 % (0.0-8.0); PLATELET COUNT 236 TH/MM3 (150-450); RED BLOOD COUNT 4.25 MIL/MM3 (4.00-5.30); RED CELL DISTRIBUTION WIDTH 14.5 % (11.6-17.2); WHITE BLOOD COUNT 7.6 TH/MM3 (4.0-11.0)
[2016-11-24 01:18] LABS: ANION GAP 11 MEQ/L (5-15); BLOOD UREA NITROGEN 12 MG/DL (7-18); CHLORIDE 106 MEQ/L (98-107); GLOMERULAR FILTRATION RATE 85 ML/MIN (>89); POTASSIUM 3.7 MEQ/L (3.5-5.1); SODIUM (NA) 145 MEQ/L (136-145)
[2016-11-24 01:35] LABS: CREATINE KINASE 90 U/L (26-192)
--- NOTE | 2016-11-24 01:44 | RADRPT ---
EXAM DATE/TIME: 11/24/2016 00:35 [facility] COMPARISON: CHEST SINGLE AP, October 20, 2016, 22:23. INDICATIONS : Chest pain. MEDICAL HISTORY : None. SURGICAL HISTORY : None. ENCOUNTER: Initial ACUITY: 1 day PAIN SCORE: 2/10 LOCATION: Bilateral chest FINDINGS: Single AP view of the chest. Lung volumes are low. Moderate cardiac silhouette enlargement. Mild hazy opacity at the left lung base. No evidence of pleural effusion or pneumothorax. CONCLUSION: Cardiac silhouette enlargement and mild hazy opacity at the left lung base. May represent early conso lidation or mild asymmetric pulmonary edema. Thomas Ridley MD on November 24, 2016 at 1:42 Board Certified Radiologist. This report was verified electronically.
[2016-11-24] MEDS ORDERED: ALPRAZolam 0.25 MG TAB PO PRN (03:00)
[2016-11-24] MEDS ORDERED: ACETAMINOPHEN 500 MG CPLT PO PRN (03:00)
[2016-11-24] MEDS ORDERED: ACETAMINOPHEN/HYDROcodone 325 MG/7.5 MG TAB PO PRN (03:00)
[2016-11-24] MEDS ORDERED: MORPHINE SULFATE 4 MG/ML INJ IV PRN (03:00)
[2016-11-24] MEDS ORDERED: TEMAZEPAM 15 MG CAP PO PRN (03:00)
[2016-11-24 04:04] VITALS: BP_SYST 113; BP_SYST 115; BP_DIAS 79; BP_DIAS 87; RESP 16; O2SAT 100
[2016-11-24] MEDS ORDERED: AZIT250T3 PO (04:13)
[2016-11-24 05:05] VITALS: BP 122/80; PULSE 82; RESP 20; TEMP 97.6; O2SAT 99
[2016-11-24 05:45] LABS: CREATINE KINASE 58 U/L (26-192)
[2016-11-24 07:29] LABS: CREATINE KINASE 57 U/L (26-192)
[2016-11-24] MEDS ORDERED: SODIUM CHLORIDE 0.9% FLUSH 5 ML FLUSH IVF SCH (09:00)
[2016-11-24] MEDS ORDERED: ASPIRIN 325 MG TAB PO SCH (09:00)
--- NOTE | 2016-11-24 16:24 | EKG ---
Date Performed: 11/24/2016 Time Performed: 06:31:50 PTAGE: 51 years EKG: Sinus rhythm LOW QRS VOLTAGE IN PRECORDIAL LEADS BORDERLINE ECG Since PREVIOUS TRACING , no significant change noted PREVIOUS TRACIN11/24/2016 03.53 DOCTOR: Ximena Obrien Interpretating Date/Time 11/24/2016 16:22:41
--- NOTE | 2016-11-24 16:25 | EKG ---
Date Performed: 11/24/2016 Time Performed: 03:53:21 PTAGE: 51 years EKG: Sinus rhythm NORMAL ECG Since PREVIOUS TRACING , no significant change noted PREVIOUS TRACIN10/21/2016 00.07 DOCTOR: Ximena Obrien Interpretating Date/Time 11/24/2016 16:24:10
--- NOTE | 2016-11-24 16:25 | EKG ---
Date Performed: 11/24/2016 Time Performed: 04:56:31 PTAGE: 51 years EKG: Sinus rhythm NORMAL ECG Since PREVIOUS TRACING , no significant change noted PREVIOUS TRACIN11/24/2016 03.53 DOCTOR: Ximena Obrien Interpretating Date/Time 11/24/2016 16:23:34
== END 2016-11-24 08:38 | disposition left against medical advice (07) ==
LOC: NEPC 23:47 → NEDA 11-24 03:02 → NEPHCDU 11-24 04:59
DX: J18.1 Lobar pneumonia, unspecified organism (principal); R11.2 Nausea with vomiting, unspecified; F31.9 Bipolar disorder, unspecified; F20.9 Schizophrenia, unspecified
CPT/HCPCS: 71010; 80048; 82550; 83735; 84484; 85025; 93005; 99285; G0378